=== PATIENT | female | born 1990 | race Caucasian/White ===

== ENCOUNTER 2019-01-05 06:00 | Inpatient (IN) ==
[2019-01-05] MEDS ORDERED: Famotidine 20 MG/2 ML VIAL IVP PRN (06:23)
[2019-01-05] MEDS ORDERED: Metoclopramide 10 MG/2 ML VIAL IVP PRN (06:23)
[2019-01-05] MEDS ORDERED: Ondansetron 4 MG/2 ML VIAL IVP PRN (06:23)
[2019-01-05] MEDS ORDERED: Naloxone 0.4 MG/ML INJ IVP PRN (06:23)
[2019-01-05] MEDS ORDERED: *HR* Nalbuphine 10 MG/ML AMPUL IVP PRN (06:23)
[2019-01-05] MEDS ORDERED: Oxytocin 20 units/ LR 1000 mL 20 UNIT/1,000 ML BAG IVC SCH (06:30)
[2019-01-05 06:51] LABS: Basophils % 0.4 %; Eosinophils # 0.1 K/mcL (0.0-0.6); Eosinophils % 0.8 %; Hematocrit 38.3 % (35.3-44.9); Hemoglobin 12.7 g/dL (11.5-15.4); Immature Granulocytes % 0.4 % (0-4); Lymphocytes # 2.4 K/mcL (0.6-4.6); Lymphocytes % 24.1 %; Mean Corpuscular HGB Conc 33.2 g/dL (31.6-35.5); Mean Corpuscular Hemoglobin 29.1 pg (28.0-33.3); Mean Corpuscular Volume 87.6 fL (83.0-100.0); Mean Platelet Volume 10.5 fL (9.4-12.4); Monocytes # 0.9 K/mcL (0.0-1.3); Monocytes % 9.3 %; Neutrophils # 6.4 K/mcL (1.6-8.9); Platelet Count 256 K/mcL (140-400); Red Blood Count 4.37 M/mcL (3.82-4.97); Red Cell Distribution Width 12.4 % (11.5-14.5)
[2019-01-05] MEDS: Ringers Solution, Lactated 1,000 ML IVC SCH ×2 (07:07→18:55)
[2019-01-05 07:28] LABS: Amphetamine Screen,Urine Negative ng/mL (Cutoff=1000); Barbiturate Screen,Urine Negative ng/mL (Cutoff=200)
[2019-01-05 07:30] LABS: Benzodiazepines Screen,Urine Negative ng/mL (Cutoff=300); Cannabinoid Screen,Urine Negative ng/mL (Cutoff = 50); Cocaine Screen,Urine Negative ng/mL (Cutoff= 300); Opiate Screen,Urine Negative ng/mL (Cutoff=300); Phencyclidine Screen,Urine Negative ng/mL (Cutoff=25)
[2019-01-05 07:36] LABS: Protein/Creatinine Ratio,Urine 0.17 mg/mg (0.00-0.20)
--- NOTE | 2019-01-05 09:11 | OB/GYN History & Physical ---
Date of Encounter: 01/05/19 Time of Encounter: 09:00 Assessment and Plan (1) 39 weeks gestation of Current visit: Yes Status: Acute (2) IUGR (intrauterine growth restriction) Current visit: Yes Status: Acute admit to labor and delivery induction with pitocin cervical herrera placed without difficulty with 60cc balloon nuabin and epidural as desired anticipate (3) Polyhydramnios affecting in third trimester Current visit: Yes Status: Acute History of Present Illness Chief complaint: Induction for IUGR HPI: Ms. Hagan is a 28 year old female here for IOL for IUGR. Pt with care from [facility]. course complicated by IUGR and polyhydramnios, and herpes exposure (not placed on prophylaxis), Pt with history of asthma, but does not use inhaler, otherwise healthy. Reports good mov ement, denies vaginal bleeding or leaking of fluid. Labs: O+, rubella immune, GBS negative Past Med Surg Social Fam HX - Past Medical History Source: patient Medical history: asthma, other Additional medical history: Ulcer, hernia Psychiatric history: anxiety - Past Surgical History Surgical History: no surgical history - Social History Smoking Status: Never smoker Smokeless Tobacco Status: No Alcohol use: none Drug use: none - Family History Mother Living Status: Still Living Hx Family Cardiac Disorders: Yes (heart disease, htn) Hx Family Respiratory Disorders: No Hx Family Cancer: No Hx Family GI Disorders: No Hx Family Genitourinary Disorders: No Hx Family Endocrine Disorder: Yes (diabetic) Hx Family Musculoskeletal Disorders: No Hx Family Neuromuscular Disorders: No Hx Family Neurologic Disorders: No Hx Family HEENT Disorders: No Hx Family Autoimmune Disorders: No Hx Family Reproductive Disorders: No Hx Family Psychosocial Disorders: No Hx Family Medical Disorders: No Obstetrical History - Pregnancies : 2 Para: 1 Term: 1 : 0 Ab's: 0 Livin Medications and Allergies Zantac 04/20/18 [History] Formula Tablet 1 tab PO DAILY 01/05/19 [History] Allergy/AdvReac Type Severity Reaction Status Date / Time fluticasone Allergy See Verified 04/20/18 13:02 [From Advair Diskus] Comments salmeterol Allergy See Verified 04/20/18 13:02 [From Advair Diskus] Comments aspirin AdvReac Numbness Verified 04/20/18 13:02 [From Rashmi-[place] Plus Cold/Cough] chlorpheniramine AdvReac Numbness Verified 04/20/18 13:02 [From Rashmi-[place] Plus Cold/Cough] dextromethorphan AdvReac Numbness Verified 04/20/18 13:02 [From Rashmi-[place] Plus Cold/Cough] phenylpropanolamine AdvReac Numbness Verified 04/20/18 13:02 [From Rashmi-[place] Plus Cold/Cough] Exam - Constitutional Constitutional: well developed, well nourished, no acute distress - Neck Neck exam: full ROM - Lungs Respiratory exam: CTAB - Cardiovascular Cardiovascular exam: RRR - Abdomen Abdomen: Present: gravid, non tender - Extremities Extremities exam: normal inspection - Cervix Dilation: 1 Results Result Diagrams: 01/05/19 06:43 01/05/19 06:43 Abnormal lab results Urine Total Protein 17 mg/dL (1-14) H 01/05/19 07:15 All other labs normal. - VTE Reasons for not Prescribing Prophylaxis: Treatment not Indicated - Low risk for VTE
[2019-01-05 09:17] LABS: Alanine Aminotransferase 8 Units/L (7-52); Aspartate Amino Transferase 15 Units/L (13-39); BUN/Creatinine Ratio 16 (6-26); Blood Urea Nitrogen 9 mg/dL (6-20); Lactate Dehydrogenase 215 Units/L (140-271); Uric Acid 4.7 mg/dL (2.3-7.6); eGFR For Non-African Americans > 60 (> 60)
--- NOTE | 2019-01-05 09:21 | Anesthesia Evaluation PreOp ---
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) Other Medical History: Denies Any Significant HX Anesthesia History: No Prior Anesthetic Complications (CHELE x 1--no issues; never had any procedure requiring GA; denies family h/o GA complications) : Yes Alcohol Use: none Drug use: none Medications and Allergies Zantac 04/20/18 [History] Formula Tablet 1 tab PO DAILY 01/05/19 [History] Allergy/AdvReac Type Severity Reaction Status Date / Time fluticasone Allergy See Verified 04/20/18 13:02 [From Advair Diskus] Comments salmeterol Allergy See Verified 04/20/18 13:02 [From Advair Diskus] Comments aspirin AdvReac Numbness Verified 04/20/18 13:02 [From Rashmi-[place] Plus Cold/Cough] chlorpheniramine AdvReac Numbness Verified 04/20/18 13:02 [From Rashmi-[place] Plus Cold/Cough] dextromethorphan AdvReac Numbness Verified 04/20/18 13:02 [From Rashmi-[place] Plus Cold/Cough] phenylpropanolamine AdvReac Numbness Verified 04/20/18 13:02 [From Rashmi-[place] Plus Cold/Cough] - Meds/Allergy Pre-op Review Medications Reviewed: Yes Allergies Reviewed: Yes Beta Blockers on Current Med List: No Anesthesia Results - Labs 01/05/19 06:43 01/05/19 06:43 Anesthesia Exam 134/88, HR 72, RR 16 O2 Sat Height 1.65 m Weight 79.095 kg NPO (# of Hours): solids > 8hrs Pain Scale: 0 Pain Scale Used: Numeric (1 - 10) - HEENT Pupil (Motor): Pupils equal Mallampati: II Teeth: Normal Oral Opening: Greater than 3 - 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
[2019-01-05] MEDS ORDERED: *HR* FentaNYL (PF) 100 MCG/2 ML VIAL EP ONE (11:25)
[2019-01-05] MEDS ORDERED: Bupivacaine-MPF 0.25% 10 ML VIAL EP ONE (11:25)
[2019-01-05] MEDS ORDERED: Epidural Premix (fent/bupiv) 110 ML EP SCH (11:30)
--- NOTE | 2019-01-05 16:37 | OB Labor Progress Note ---
Date of Encounter: 01/05/19 Time of Encounter: 16:35 Labor Progress Note - Subjective Subjective: Coping with contractions - Cervix Cervix: 6/80/-2 - Heart Tones Heart Tones: 135/moderate/positive accelerations/early decelerations - Interventions Interventions: AROM for small amount of clear fluid - Plan Physician notified: No
[2019-01-05] MEDS ORDERED: Bupivacaine-MPF 0.25% 10 ML VIAL ONE (16:41)
[2019-01-05] MEDS ORDERED: Lidocaine -MPF 1% 5 ML AMPUL ONE (16:41)
[2019-01-05] MEDS ORDERED: *HR* FentaNYL (PF) 100 MCG/2 ML VIAL ONE (16:41)
--- NOTE | 2019-01-05 17:18 | Anesthesia Procedures ---
Addendum entered and electronically signed by Renan Servin CRNA 01/06/19 01:50: Delivery Date: 01/05/19 Delivery Time: 22:58 Original Note: Date of Encounter: 01/05/19 Time of Encounter: 17:17 Procedures: Anesthesia - Epidural/Spinal Patient ID/Chart reviewed: Yes Patient examined: Yes OB Eval: Gestational age: 39 weeks 1 day OB Eval: : 2 OB Eval: Hx Para: 1 OB Eval: Dilated at (cm): 6 OB Eval: Contractions: Non-stressed pattern Consent Obtained: Yes Supplemental Oxygen: None/Room Air Site Prep: Aseptic Technique, Sterile prep and drape, Povidone-Iodine 1% Patient position: upright Local Anesthetic: Lidocaine 1% Amount of Local Anesthetic used: 3 Touhy Needle Gauge: 18 Touhy Needle Depth (cm): 6 Catheter Depth at Skin (cm): 11 Test Dose (1.5% Lido + Epi): Volume given (mls): 5 Test Dose Result: Negative Loading Dose: 0.25% Marcaine (mls): 5 Loading Dose: Fentanyl (mcg): 100 Loading Dose Administered: Thru Catheter Infusion Med: 0.125% Bupivacaine w/ 2 mcg/ml Fentanyl Infusion Rate (mls/hr): 14 (w/ demand bolus of 6mL q30min PRN) Catheter Secured in Place: Tegaderm, Tape Interspace Used: L4-L5 Loss of Resistance (QUAN): Yes Blood: No CSF: No Paresthesia: No Procedure: successful on 1st attempt; patient tolerated procedure well; VSS Vitals + FHT's: see [facility]'s electronic records for VS entry
--- NOTE | 2019-01-05 20:11 | OB Labor Progress Note ---
Date of Encounter: 01/05/19 Time of Encounter: 20:09 Labor Progress Note - Subjective Subjective: Comfortable with epidural - Cervix Cervix: 6/80/-2 - Heart Tones Heart Tones: 135/moderate/+accels/earlies - Imlay Imlay: q2 - Interventions Interventions: IUPC placed without difficulty - Plan Physician notified: No
--- NOTE | 2019-01-05 23:17 | OB/GYN Procedure Note ---
Delivery - Delivery Date: 01/05/19 Provider: Sharon Leger Intrapartum events: polyhydramnios Delivery induction: oxytocin, herrera Delivery monitor: external FHT, external uterine, internal uterine Anesthesia: epidural Quantitated Blood Loss: 50 - Infant (s) Infant A Infant Delivery Date: 01/05/19 Infant Delivery Time: 22:58 Presentation: vertex Position: OA Route of delivery: Gender: Female Viability: Viable Pounds: 6 Ounces: 1 Weight Gram: 2740 kg at 1 minute: 8 at 5 mins: 9 Shoulder Dystocia: not encountered Specimens collected: cord blood Placenta: spontaneous Cord: nuchal cord, 3 umbilical vessels, delivered through nuchal - Repair Episiotomy: none Laceration Description: None - Complications Delivery complications: none Delivery comments: Induction of labor with oxytocin and cervical Herrera for IUGR, and polyhydramnios. Progressed to complete, maternal bearing down efforts of liveborn female. Vertex delivered OA, nuchal cord identified, delivered through nuchal, shoulders and body easily followed. Vigorous placed on maternal abdomen for drying and stimulation. Apgars 8/9. Placenta delivered spontaneously (Marge) complete and intact upon inspection. Fundus massaged until firm and Pitocin started per policy. No perineal lacerations noted, EBL 50 - Disposition Mom disposition: stable in LDR [place] disposition: stable in LDR
[2019-01-06] MEDS ORDERED: Oxytocin 20 units/ LR 1000 mL 20 UNIT/1,000 ML BAG IVC SCH (01:34)
[2019-01-06] MEDS ORDERED: Acetaminophen 325 MG TABLET PO PRN (01:34)
[2019-01-06] MEDS ORDERED: Lanolin 7 G OINT...G. TP PRN (01:34)
[2019-01-06] MEDS ORDERED: Benzocaine/Menthol 56 GM AEROSOL SPRAY TP PRN (01:34)
[2019-01-06] MEDS: Ibuprofen 600 MG TABLET PO PRN ×2 (01:49→20:23)
[2019-01-06] MEDS ORDERED: Ringers Solution, Lactated 1,000 ML ONE (07:35)
[2019-01-06] MEDS ORDERED: Prenatal Vit/FA 1 EACH TABLET PO SCH (09:00)
--- NOTE | 2019-01-06 09:43 | OB/GYN Progress Note ---
Date of Encounter: 01/06/19 Time of Encounter: 09:40 - Assessment and Plan (1) Status post vaginal delivery Current Visit: Yes Status: Acute Patient meeting day one milestones. Pain well-controlled with prescribed medications. Voiding without difficulty, tolerating regular diet. No bowel movement yet. Anticipate discharge either late tonight or tomorrow morning. Patient is aware that she would not be able to be discharged until after 24 hours from delivery which puts her somewhere between 11:30 and midnight. If she chooses to go home tonight she can otherwise we will discharge her in the morning. (2) Breast feeding status of mother Current Visit: Yes Status: Acute support as needed Patient does not desire breast pump as she states she will quit breast-feeding 4 weeks when she returns to work. Subjective - Subjective Principal diagnosis: Status post vaginal delivery Interval history: Delivery Date: 01/05/19 Provider: Sharon Leger Intrapartum events: polyhydramnios Delivery induction: oxytocin, herrera Delivery monitor: external FHT, external uterine, internal uterine Anesthesia: epidural Quantitated Blood Loss: 50 - (s) A Infant Delivery Date: 01/05/19 Delivery Time: 22:58 Presentation: vertex Position: OA Route of delivery: Gender: Female Viability: Viable Pounds: 6 Ounces: 1 Weight Gram: 2740 kg at 1 minute: 8 at 5 mins: 9 Shoulder Dystocia: not encountered Specimens collected: cord blood Placenta: spontaneous Cord: nuchal cord, 3 umbilical vessels, delivered through nuchal - Repair Episiotomy: none Laceration Description: None - Complications Delivery complications: none Delivery comments: Induction of labor with oxytocin and cervical Herrera for IUGR, and polyhydramnios. Progressed to complete, maternal bearing down efforts of liveborn female. Vertex delivered OA, nuchal cord identified, delivered through nuchal, shoulders and body easily followed. Vigorous placed on maternal abdomen for drying and stimulation. Apgars 8/9. Placenta delivered spontaneously (Marge) complete and intact upon inspection. Fundus massaged until firm and Pitocin started per policy. No perineal lacerations noted, EBL 50 - Disposition Mom disposition: stable in LDR [place] disposition: stable in LDR Patient reports: appetite normal, voiding normally, pain well controlled, ambulating normally [place]: doing well, nursing well Objective - Latest Vital Signs Latest vital signs: Vital Signs Temp Pulse Resp BP Pulse Ox 01/06/19 07:30 98.6 F 67 16 124/69 01/06/19 03:35 98.2 F 69 14 123/84 97 01/06/19 02:35 98 F 76 14 125/85 98 01/06/19 01:30 98 F 81 14 133/87 97 Intake and Output 01/05/19 01/06/19 01/06/19 23:59 07:59 15:59 Output Total 1800 / 1800 Balance -1800 / -1800 Output: Urine 1800 / 1800 - Exam Lungs: bilateral: normal Chest: Normal S1, Normal S2 Extremities: Present: normal Abdomen: Present: normal appearance, soft Uterus: Present: normal, firm Uterus Position: 1 Finger Below Umbilicus, Midline
--- NOTE | 2019-01-06 10:39 | Discharge Summary ---
Date of Encounter: 01/06/19 Time of Encounter: 10:37 - Discharge Diagnosis (1) Status post vaginal delivery Priority: Primary Status: Acute Comments: Patient desires to be discharged tonight. See S/P vag delivery note from earlier today. (2) Breast feeding status of mother Priority: Secondary Status: Acute Comments: support prn - Discharge Medications Prescriptions: Ibuprofen [Ibu] 600 mg PO Q6H PRN #60 tablet PRN Reason: Pain Home Medications: Zantac 04/20/18 [History] Formula Tablet 1 tab PO DAILY 01/05/19 [History] Ibuprofen [Ibu] 600 mg PO Q6H PRN #60 tablet 01/06/19 [Rx] Allergies/Adverse Reactions: Allergy/AdvReac Type Severity Reaction Status Date / Time aspirin Allergy Numbness Verified 01/06/19 07:58 [From Rashmi-[place] Plus Cold/Cough] chlorpheniramine Allergy Numbness Verified 01/06/19 07:58 [From Rashmi-[place] Plus Cold/Cough] dextromethorphan Allergy Numbness Verified 01/06/19 07:58 [From Rashmi-[place] Plus Cold/Cough] fluticasone Allergy Nausea Verified 01/06/19 07:58 [From Advair Diskus] phenylpropanolamine Allergy Numbness Verified 01/06/19 07:58 [From Rashmi-[place] Plus Cold/Cough] salmeterol Allergy Nausea Verified 01/06/19 07:58 [From Advair Diskus] Data Procedures and tests throughout hospitalization: Laboratory Tests 01/05/19 01/05/19 01/05/19 06:43 06:43 07:15 WBC 9.9 RBC 4.37 Hgb 12.7 Hct 38.3 MCV 87.6 MCH 29.1 MCHC 33.2 RDW 12.4 Plt Count 256 MPV 10.5 Immature Gran % 0.4 Seg Neutrophils % 65.0 Lymphocytes % 24.1 Monocytes % 9.3 Eosinophils % 0.8 Basophils % 0.4 Neutrophils # 6.4 Lymphocytes # 2.4 Monocytes # 0.9 Eosinophils # 0.1 Basophils # 0.0 BUN 9 Creatinine 0.57 L Est GFR ( Amer) > 60 Est GFR (Non-Af Amer) > 60 BUN/Creatinine Ratio 16 Uric Acid 4.7 AST 15 ALT 8 Lactate Dehydrogenase 215 Urine Creatinine Protein/Creatinin Ratio Urine Total Protein Urine Opiates Screen Negative Ur Barbiturates Screen Negative Ur Phencyclidine Scrn Negative Ur Amphetamines Screen Negative U Benzodiazepines Scrn Negative Urine Cocaine Screen Negative U Marijuana (THC) Screen Negative Ur Drug Screen Interp See Below 01/05/19 07:15 WBC RBC Hgb Hct MCV MCH MCHC RDW Plt Count MPV Immature Gran % Seg Neutrophils % Lymphocytes % Monocytes % Eosinophils % Basophils % Neutrophils # Lymphocytes # Monocytes # Eosinophils # Basophils # BUN Creatinine Est GFR ( Amer) Est GFR (Non-Af Amer) BUN/Creatinine Ratio Uric Acid AST ALT Lactate Dehydrogenase Urine Creatinine 101 Protein/Creatinin Ratio 0.17 Urine Total Protein 17 H Urine Opiates Screen Ur Barbiturates Screen Ur Phencyclidine Scrn Ur Amphetamines Screen U Benzodiazepines Scrn Urine Cocaine Screen U Marijuana (THC) Screen Ur Drug Screen Interp Date of admission: 01/05/19 06:21 Primary care physician: PCP JENNIFER Consults: 01/06/19 01:34 Consult to Electric Stove Mechanic [CONS] Routine Comment: Vaginal delivery, consult needed Discharging clinician: Jacqueline Mcadams Anticipated date of discharge: 01/06/19 - Patient Status Disposition: Home, Self-Care Condition: Good Functional capacity at discharge: independent ambulation Overall status at discharge: patient is progressing back to baseline - Discharge Instructions Follow Up With: NONE,PCP [Primary Care Provider] - - Diet and Activity Activity: increase activity as tolerated, resume usual activities as tolerated Diet: regular diet Hospital Course Reason for admission: induction of labor, other (IOL for IUGR) Delivery: Episiotomy: none Laceration: none Other procedures: none complications: none Discharge diagnosis: IUP at term delivered [place] baby: female Hospital course: Patient was induced at 39 weeks gestation for IUGR and Polyhydramnios. She progressed normally through labor and delivery spontaneously with an intact per ineum and minimal blood loss. She is doing well today and requests to be discharged home late tonight with her infant. She is meeting all milestones. Time Attestation: Total time spent providing and/or coordinating discharge services: Time Spent: Less than 30 minutes Exam - Constitutional Vitals: Temp Pulse Resp BP Pulse Ox 98.6 F 67 16 124/69 97 01/06/19 07:30 01/06/19 07:30 01/06/19 07:30 01/06/19 07:30 01/06/19 03:35 - Other Additional findings: No change in assessment from earlier today.
[2019-01-06 20:26] VITALS: BP 126/87
== END 2019-01-06 23:40 | disposition home or self-care (01) | DRG 807 ==
LOC: 1NENULAB 06:21 → 1NENUOBS 01-06 01:09
PROVIDERS: ADMIT Advanced Practice Midwife; ATTEND Advanced Practice Midwife

== ENCOUNTER → 2020-04-12 23:17 | Observation (INO) | END | disposition home or self-care (01) | LOC: 1NENULAB | PROVIDERS: ADMIT Obstetrics & Gynecology; ATTEND Obstetrics & Gynecology ==

== ENCOUNTER → 2020-04-14 | Observation (INO) ==
[2020-04-13 22:28] LABS: Bilirubin,Urine Negative (Negative); Blood,Urine Negative (Negative); Clarity,Urine Cloudy (Clear); Color,Urine Yellow (Yellow); Glucose,Urine (UA) Normal (Normal); Ketones,Urine Negative (Negative); Leukocyte Esterase,Urine Negative (Negative); Nitrite,Urine Negative (Negative); PH,Urine 6.5 pH Units (5.0-8.0); Protein,Urine Negative (Neg-Trace); Specific Gravity,Urine 1.025 (1.010-1.025); Urobilinogen,Urine Normal (Normal)
[2020-04-13 22:30] LABS: Bacteria,Urine None Seen per hpf (None-Few); Hyaline Casts,Urine None Seen per lpf (None-Few); RBC,Urine 0-3 per hpf (0-3); Squamous Epithelial Cell,Urine Many per lpf (None-Few); WBC,Urine 0-3 per hpf (0-3)
[2020-04-13 23:17] LABS: Candida DNA Not Detected (Not Detect); Gardnerella DNA Not Detected (Not Detect); Trichomonas DNA Not Detected (Not Detect)
== END | disposition home or self-care (01) ==
LOC: 1NENULAB
PROVIDERS: ADMIT Obstetrics & Gynecology; ATTEND Obstetrics & Gynecology

== ENCOUNTER → 2020-04-25 22:30 | Observation (INO) ==
[2020-04-25 22:06] LABS: Bilirubin,Urine Negative (Negative); Blood,Urine Negative (Negative); Clarity,Urine Cloudy (Clear); Color,Urine Yellow (Yellow); Glucose,Urine (UA) Normal (Normal); Ketones,Urine Negative (Negative); Leukocyte Esterase,Urine Small (Negative); Nitrite,Urine Negative (Negative); Protein,Urine Negative (Neg-Trace); Specific Gravity,Urine 1.022 (1.010-1.025); Urobilinogen,Urine Normal (Normal)
[2020-04-25 22:14] LABS: Bacteria,Urine Moderate per hpf (None-Few); Hyaline Casts,Urine None Seen per lpf (None-Few); RBC,Urine 0-3 per hpf (0-3); Squamous Epithelial Cell,Urine Many per lpf (None-Few)
[2020-04-26 00:11] LABS: Candida DNA Not Detected (Not Detect); Gardnerella DNA Not Detected (Not Detect); Trichomonas DNA Not Detected (Not Detect)
== END | disposition home or self-care (01) ==
LOC: 1NENULAB
PROVIDERS: ADMIT Obstetrics & Gynecology; ATTEND Obstetrics & Gynecology

== ENCOUNTER 2021-09-24 19:58 | Observation (INO) ==
[2021-09-24 21:03] LABS: Bilirubin,Urine Negative (Negative); Blood,Urine Negative (Negative); Clarity,Urine Clear (Clear); Color,Urine Colorless (Yellow); Glucose,Urine (UA) Normal (Normal); Ketones,Urine Negative (Negative); Leukocyte Esterase,Urine Negative (Negative); Nitrite,Urine Negative (Negative); PH,Urine 6.5 pH Units (5.0-8.0); Protein,Urine Negative (Neg-Trace); Specific Gravity,Urine 1.009 (1.010-1.025); Urobilinogen,Urine Normal (Normal)
== END 2021-09-24 21:52 | disposition home or self-care (01) ==
LOC: 1NENULAB
PROVIDERS: ADMIT Registered Nurse; ATTEND Registered Nurse

== ENCOUNTER → 2021-10-02 21:40 | Observation (INO) ==
[2021-10-02 19:54] LABS: Bacteria,Urine Few per hpf (None-Few); Bilirubin,Urine Negative (Negative); Blood,Urine Negative (Negative); Clarity,Urine Turbid (Clear); Color,Urine Light-Yellow (Yellow); Glucose,Urine (UA) Normal (Normal); Hyaline Casts,Urine Few per lpf (None Seen); Ketones,Urine Negative (Negative); Leukocyte Esterase,Urine Small (Negative); Mucus,Urine Few per lpf (None-Few); Nitrite,Urine Negative (Negative); PH,Urine 6.5 pH Units (5.0-8.0); Protein,Urine Trace mg/dL (Neg-Trace); RBC,Urine 0-3 per hpf (0-3); Specific Gravity,Urine 1.025 (1.010-1.025); Squamous Epithelial Cell,Urine Many per hpf (None-Few); Urobilinogen,Urine Normal (Normal); WBC,Urine 0-3 per hpf (0-3)
[~2021-10-02 21:40] MED LIST: hydrOXYzine pamoate 25 MG CAPSULE PO STA
== END | disposition home or self-care (01) ==
LOC: 1NENULAB
PROVIDERS: ADMIT Obstetrics & Gynecology; ATTEND Obstetrics & Gynecology

== ENCOUNTER → 2021-10-04 23:15 | Observation (INO) ==
[2021-10-04 22:42] LABS: Bilirubin,Urine Negative (Negative); Blood,Urine Negative (Negative); Clarity,Urine Turbid (Clear); Color,Urine Light-Yellow (Yellow); Glucose,Urine (UA) Normal (Normal); Ketones,Urine Negative (Negative); Leukocyte Esterase,Urine Small (Negative); Nitrite,Urine Negative (Negative); Protein,Urine Trace mg/dL (Neg-Trace); Specific Gravity,Urine 1.025 (1.010-1.025); Urobilinogen,Urine Normal (Normal)
[2021-10-04 22:51] LABS: Squamous Epithelial Cell,Urine Moderate per hpf (None-Few)
[2021-10-04 22:52] LABS: Bacteria,Urine Moderate per hpf (None-Few)
== END | disposition home or self-care (01) ==
LOC: 1NENULAB
PROVIDERS: ADMIT Obstetrics & Gynecology; ATTEND Obstetrics & Gynecology

== ENCOUNTER → 2021-10-10 17:48 | Observation (INO) ==
[2021-10-10 15:39] LABS: Bilirubin,Urine Negative (Negative); Blood,Urine Negative (Negative); Clarity,Urine Clear (Clear); Color,Urine Colorless (Yellow); Glucose,Urine (UA) Normal (Normal); Ketones,Urine Negative (Negative); Leukocyte Esterase,Urine Trace (Negative); Mucus,Urine Few per lpf (None-Few); Nitrite,Urine Negative (Negative); PH,Urine 6.5 pH Units (5.0-8.0); Protein,Urine Negative (Neg-Trace); RBC,Urine 0-3 per hpf (0-3); Squamous Epithelial Cell,Urine Few per hpf (None-Few); Urobilinogen,Urine Normal (Normal); WBC,Urine 0-3 per hpf (0-3)
[~2021-10-10 17:48] MED LIST changes: +Betamethasone Acet/SodPhos 30 MG/5 ML VIAL IM SCH; +Terbutaline 1 MG/ML VIAL SQ ONE; -hydrOXYzine pamoate 25 MG CAPSULE PO STA
== END | disposition home or self-care (01) ==
LOC: 1NENULAB
PROVIDERS: ADMIT Advanced Practice Midwife; ATTEND Advanced Practice Midwife

== ENCOUNTER → 2021-11-01 20:55 | Observation (INO) ==
[2021-11-01 19:50] LABS: Bilirubin,Urine Negative (Negative); Blood,Urine Negative (Negative); Clarity,Urine Clear (Clear); Color,Urine Light-Yellow (Yellow); Glucose,Urine (UA) Normal (Normal); Ketones,Urine Negative (Negative); Leukocyte Esterase,Urine Negative (Negative); Nitrite,Urine Negative (Negative); Protein,Urine Negative (Neg-Trace); Urobilinogen,Urine Normal (Normal)
[~2021-11-01 20:55] MED LIST changes: +Azithromycin 250 MG TABLET PO SCH; -Betamethasone Acet/SodPhos 30 MG/5 ML VIAL IM SCH; -Terbutaline 1 MG/ML VIAL SQ ONE
== END | disposition home or self-care (01) ==
LOC: 1NENULAB
PROVIDERS: ADMIT Obstetrics & Gynecology; ATTEND Obstetrics & Gynecology

== ENCOUNTER → 2021-11-05 22:56 | Observation (INO) ==
[2021-11-05 22:27] LABS: Bacteria,Urine Few per hpf (None-Few); Bilirubin,Urine Negative (Negative); Blood,Urine Negative (Negative); Clarity,Urine Turbid (Clear); Color,Urine Light-Yellow (Yellow); Glucose,Urine (UA) Normal (Normal); Ketones,Urine Negative (Negative); Leukocyte Esterase,Urine Trace (Negative); Mucus,Urine Few per lpf (None-Few); Nitrite,Urine Negative (Negative); PH,Urine 6.5 pH Units (5.0-8.0); Protein,Urine Negative (Neg-Trace); RBC,Urine 0-3 per hpf (0-3); Specific Gravity,Urine 1.014 (1.010-1.025); Squamous Epithelial Cell,Urine Moderate per hpf (None-Few); Urobilinogen,Urine Normal (Normal); WBC,Urine 0-3 per hpf (0-3)
== END | disposition home or self-care (01) ==
LOC: 1NENULAB
PROVIDERS: ADMIT Obstetrics & Gynecology; ATTEND Obstetrics & Gynecology

== ENCOUNTER → 2021-11-07 21:25 | Observation (INO) | END | disposition home or self-care (01) | LOC: 1NENULAB | PROVIDERS: ADMIT Student in an Organized Health Care Education/Training Program; ATTEND Student in an Organized Health Care Education/Training Program ==

== ENCOUNTER → 2021-11-09 22:05 | Observation (INO) ==
[2021-11-09 21:47] LABS: Bilirubin,Urine Negative (Negative); Blood,Urine Negative (Negative); Clarity,Urine Slightly Cloudy (Clear); Glucose,Urine (UA) Normal (Normal); Ketones,Urine Negative (Negative); Leukocyte Esterase,Urine Negative (Negative); Nitrite,Urine Negative (Negative); PH,Urine 6.5 pH Units (5.0-8.0); Protein,Urine Negative (Neg-Trace); Specific Gravity,Urine 1.025 (1.010-1.025); Urobilinogen,Urine Normal (Normal)
[2021-11-09 21:48] LABS: Color,Urine Yellow (Yellow)
[2021-11-09 21:50] LABS: Bacteria,Urine Few per hpf (None-Few); Calcium Oxalate Crystals,Urine Present per hpf; Mucus,Urine Few per lpf (None-Few); Squamous Epithelial Cell,Urine Moderate per hpf (None-Few); WBC,Urine 0-3 per hpf (0-3)
== END | disposition home or self-care (01) ==
LOC: 1NENULAB
PROVIDERS: ADMIT Obstetrics & Gynecology; ATTEND Obstetrics & Gynecology

== ENCOUNTER 2021-11-16 12:14 | Inpatient (IN) ==
[2021-11-16] MEDS ORDERED: *HR* Nalbuphine 10 MG/ML AMPUL IV PRN (14:06)
[2021-11-16] MEDS ORDERED: Famotidine 20 MG/2 ML VIAL IVP PRN (14:06)
[2021-11-16] MEDS ORDERED: Lidocaine 1% 20 ML MDV INFILT PRN (14:06)
[2021-11-16] MEDS ORDERED: Metoclopramide 10 MG/2 ML VIAL IVP PRN (14:06)
[2021-11-16] MEDS ORDERED: Naloxone 0.4 MG/ML INJ IVP PRN (14:06)
[2021-11-16] MEDS ORDERED: EPHEDrine 50 MG/ML VIAL IVP PRN (14:59)
[2021-11-16] MEDS ORDERED: Epidural Premix (fent/bupiv) 110 ML EP SCH (15:00)
[2021-11-16] MEDS ORDERED: Oxytocin 20 units/ LR 1000 mL 20 UNIT/1,000 ML BAG IVC SCH ×2 (15:15→23:32)
[2021-11-16 15:21] LABS: Basophils % 0.2 %; Eosinophils # 0.1 K/mcL (0.0-0.6); Eosinophils % 0.5 %; Hematocrit 39.6 % (35.3-44.9); Hemoglobin 12.8 g/dL (11.5-15.4); Immature Granulocytes % 0.3 % (0-4); Lymphocytes # 1.5 K/mcL (0.6-4.6); Lymphocytes % 15.6 %; Mean Corpuscular HGB Conc 32.3 g/dL (31.6-35.5); Mean Corpuscular Hemoglobin 29.4 pg (28.0-33.3); Mean Platelet Volume 10.2 fL (9.4-12.4); Monocytes # 0.7 K/mcL (0.0-1.3); Monocytes % 7.5 %; Neutrophils # 7.5 K/mcL (1.6-8.9); Platelet Count 247 K/mcL (140-400); Red Blood Count 4.35 M/mcL (3.82-4.97); Red Cell Distribution Width 13.4 % (11.5-14.5); Segmented Neutrophils % 75.9 %; White Blood Count 9.9 K/mcL (4.3-11.1)
[2021-11-16 15:28] LABS: Amphetamine Screen,Urine Negative ng/mL (Cutoff=1000); Barbiturate Screen,Urine Negative ng/mL (Cutoff=200); Benzodiazepines Screen,Urine Negative ng/mL (Cutoff=200); Cannabinoid Screen,Urine Negative ng/mL (Cutoff = 50); Cocaine Screen,Urine Negative ng/mL (Cutoff= 300); Opiate Screen,Urine Negative ng/mL (Cutoff=300); Phencyclidine Screen,Urine Negative ng/mL (Cutoff=25)
[2021-11-16] MEDS: Ringers Solution, Lactated 1,000 ML IVC SCH ×2 (15:48→18:59)
[2021-11-16 15:58] LABS: Influenza A PCR Negative (Negative); Influenza B PCR Negative (Negative); Resp. Syncytial Virus PCR Negative (Negative); SARS-CoV-2 by PCR (In House) Negative (Negative)
[2021-11-16] MEDS: Ibuprofen 600 MG TABLET PO SCH (23:30)
[2021-11-16] MEDS: Acetaminophen 325 MG TABLET PO SCH (23:30)
[2021-11-16] MEDS ORDERED: Measles/Mumps/Rubella Vacc 0.5 ML VIAL SQ PRN (23:32)
[2021-11-16] MEDS ORDERED: Ondansetron ODT 4 MG TAB.RAPDIS SL PRN (23:32)
[2021-11-16] MEDS ORDERED: Lanolin 7 G OINT...G. TP PRN (23:32)
[2021-11-16] MEDS ORDERED: Benzocaine/Menthol 56 GM AEROSOL SPRAY TP PRN (23:32)
[2021-11-17 04:59] LABS: Basophils % 0.3 %; Eosinophils # 0.1 K/mcL (0.0-0.6); Eosinophils % 0.4 %; Hematocrit 32.9 % (35.3-44.9); Immature Granulocytes % 0.4 % (0-4); Lymphocytes # 1.8 K/mcL (0.6-4.6); Mean Corpuscular HGB Conc 33.4 g/dL (31.6-35.5); Mean Corpuscular Hemoglobin 30.1 pg (28.0-33.3); Mean Corpuscular Volume 90.1 fL (83.0-100.0); Mean Platelet Volume 10.4 fL (9.4-12.4); Monocytes # 1.1 K/mcL (0.0-1.3); Monocytes % 8.1 %; Neutrophils # 10.9 K/mcL (1.6-8.9); Platelet Count 188 K/mcL (140-400); Red Blood Count 3.65 M/mcL (3.82-4.97); Red Cell Distribution Width 13.3 % (11.5-14.5); Segmented Neutrophils % 77.8 %
[2021-11-17] MEDS: Amoxicillin 250 MG CHEWABLE TABLET PO SCH ×3 (08:40→15:04)
[2021-11-17] MEDS: Ibuprofen 600 MG TABLET PO SCH (08:41)
[2021-11-17] MEDS: Acetaminophen 325 MG TABLET PO SCH (08:41)
[2021-11-17] MEDS ORDERED: Prenatal Vit/FA 1 EACH TABLET PO SCH (09:00)
[2021-11-17 16:14] VITALS: BP 112/77; PULSE 83; TEMP 97.6; O2SAT 97
== END 2021-11-17 22:18 | disposition home or self-care (01) | DRG 560 ==
LOC: 1NENULAB → 1NENUOBS 23:31
PROVIDERS: ADMIT Obstetrics & Gynecology; ATTEND Obstetrics & Gynecology